=== PATIENT | male | born 1950 | race Caucasian/White ===

== ENCOUNTER 2016-06-09 19:25 | Emergency (ER) | payer OTHER ==
--- NOTE | 2016-06-09 20:50 | PROVIDER DOCUMENTATION ---
HPI-General Adult - General Chief Complaint: Fall Stated Complaint: FALL, RT SIDE PAIN Time Seen by Provider: 06/09/16 20:16 Source: patient Allergies/Adverse Reactions: Patient Allergies Allergy/AdvReac Type Severity Reaction Status Date / Time No Known Allergies Allergy Verified 03/27/16 02:56 Home Medications: Home Medication List Medication Instructions Recorded Confirmed Last Taken Type Amlodipine Besylate [Norvasc] 5 mg PO DAILY 06/09/16 06/09/16 06/09/16 History Aspirin 325 mg PO DAILY 06/09/16 06/09/16 06/09/16 History Hydrocodone/APAP 10 mg/325 mg 1 tab PO BID 06/09/16 06/09/16 06/09/16 History [Pelion-10] Ibuprofen [Motrin] 800 mg PO Q8H PRN PRN #20 tablet 06/09/16 Unknown Rx Losartan Potassium [Cozaar] 100 mg PO DAILY 06/09/16 06/09/16 06/09/16 History Metoprolol Succinate E.r. [Toprol 50 mg PO DAILY 06/09/16 06/09/16 06/09/16 History Xl] Niacin [Slo-Niacin] 1,000 mg PO HS 06/09/16 06/09/16 06/08/16 History Omeprazole 20 mg PO DAILY #20 tablet. 06/09/16 Unknown Rx - History of Present Illness -Gen Adult Nature of Presenting Problems: Pt. is 65 yom that presents with c/o right rib pain after he fell while getting up out of his chair today. Pt. states he lost his balance and fell with his right ribs landing on the arm of the chair. Pt. reports this happened around 1100 this morning. Pt. states the pain has gotten worse throughout the day. Pt. denies any other injury. Location of Pain/Injury: reports: chest (Right ribs). denies: head, face, mouth , neck, upper extremity, hand(s), abdomen, back, pelvis, genitalia, lower extremity, feet, upper body, lower body, generalized Pain Radiation: reports: no radiation Quality of Pain: reports: sharp, stabbing. denies: aching, burning, cramping, dull, fullness, indigestion, pressure, tearing, throbbing, tightness Severity: reports: moderate. denies: mild, severe Onset/Duration: reports: abrupt, this morning Timing: reports: still present. denies: improving, gone now, resolved prior to arrival, intermittent, constant, changing over time, getting worse Context/Activities at Onset: reports: none. denies: recent emotional stress, recent physical stress, recent trauma history, possible bad food, cold exposure , out of country travel Modifying Factors: improves with: nothing Associated Symptoms: reports: pain with inspiration, other (Right rib pain). denies: anxiety, arm pain, back/neck pain, chest pain, constipation, cough, diaphoresis, diarrhea, dizziness, EENT symptoms, fatigue, fever/chills, genitourinary problems, headaches, heartburn, joint pain, loss of appetite, malaise, muscle aches, sinus congestion/drainage, nausea, rash, seizure, shortness of breath, sensory/motor loss, swelling/mass in abdomen, syncope, vomiting, weakness, trouble walking Similar Symptoms Previously?: No Recently seen or treated by another doctor?: No Review of Systems - Adult - REVIEW OF SYSTEMS - ADULT Constitutional: reports: see HPI. denies: chills, fever, fatique Eyes: reports: see HPI. denies: discharge, blurred vision, double vision Ears, Nose, Mouth & Throat: reports: see HPI. denies: ear pain, hearing loss, nose pain, loose teeth, mouth/dental pain, throat pain, throat swelling Cardiovascular: reports: see HPI. denies: chest pain, irregular heart rate, palpitations, syncope Respiratory: reports: see HPI. denies: chronic cough, cough, dyspnea on exertion, pleurisy, shortness of breath, wheezing Gastrointestinal: reports: see HPI. denies: abdominal pain, hematemesis, frequent heartburn, nausea, vomiting Genitourinary: reports: see HPI. denies: dysuria, discharge, hematuria, hesitency, incontinence, urgency Musculoskeletal: reports: see HPI, bone pain (Right ribs). denies: back pain, joint pain, muscle aches, neck pain Integumentary: reports: see HPI. denies: hives, itching, rash, skin thickening Neurological: reports: see HPI. denies: ataxia, headache/migraines, numbness, seizure, tremors Psychiatric: reports: see HPI. denies: anxiety, depression, emotional problems , insomnia, panic attacks, suicidal thoughts Past History - Adult - PAST MEDICAL HISTORY-ADULT Review of Records: reports: Old Records Reviewed, Nursing Assessment Review, Medications Reviewed, Social history reviewed & non-contributory. - IMMUNIZATION STATUS Childhood Immunizations: See Nurse Assessment Flu Vaccine: See Nurse Assessment - FAMILY HISTORY Family History: reviewed, not pertinent - SOCIAL HISTORY Smoking: quit greater than 1 year Physical Exam-General - PHYSICAL EXAM-ADULT Initial Vital Signs Reviewed: Yes - CONSTITUTIONAL General Appearance: alert, mild distress, obese. negative: thin, anxious, lethargic, slow to respond, obtunded, combative - EYES Eyes: PERRL/EOMI, pink conjunctivae. negative: conjuctival exudate, scleral icterus, subconjunctival hemorrhage - HEAD, EARS, NOSE, MOUTH & THROAT HENMT: normocephalic/atraumatic, moist mucous membranes. negative: angioedema, frontal tenderness, maxillary tenderness - NECK Neck: non-tender, full range of motion, supple, normal inspection. negative: lymphadenopathy, trachial deviation, thyromegaly - RESPIRATORY Respiratory: lungs clear, normal breath sounds, pain on inspiration. negative: crackles, rales, rhonchi, stridor, wheezing - CARDIOVASCULAR Cardiovascular: regular rate, rhythm, no edema, no JVD, no murmur, tachycardia. negative: extra beats, friction rub, irregularly irregular - CHEST (BREASTS) Chest/Breast: deferred, tenderness (Right rib tenderness), other (Bruising noted to the lower rib line on the right side.) - GASTROINTESTINAL (ABDOMEN) Abdominal Exam: normal bowel sounds, non tender, soft. negative: distended, guarding, rigid, rebound, tenderness, hernia, mass - GENITOURINARY Male Genitalia: deferred Rectal Exam: deferred Hemoccult Exam: deferred - LYMPHATIC Lymphatic: no adenopathy. negative: axilla node tender, cervical node tenderness - MUSCULOSKELETAL Back Exam: normal inspection, no CVA tenderness, no vertebral tenderness, ecchymosis (Mild bruising noted to lower right ribs). negative: swelling, vertebral tenderness Extremity: normal range of motion, non-tender, normal gait, normal inspection. negative: deformity, erythema, inflammation, swelling, tenderness Peripheral Pulses: radial (R): 2+, radial (L): 2+ - SKIN Integumentary: normal color, normal turgor, warm/dry. negative: cyanosis, diaphoresis, ecchymosis, erythema, jaundice, mottled, pallor, petechiae, purpura , rash, swelling, tenderness - NEUROLOGIC Neurologic: grossly normal, no motor/sensory deficits. negative: aphasia, facial droop, focal weakness, motor weakness, sensory deficit - PSYCHIATRIC Psych/Mental Status: normal mood/affect, normal thought content, normal thought process, oriented x 3. negative: anxious, paranoid, tearful Progress - PLAN OF CARE/RESULTS Progress/Plan/Lab Results: Discussed results and plan of care with patient. Patient agrees with plan and verbalizes understanding. Vital Signs Temp Pulse Resp BP Pulse Ox 06/09/16 19:27 97.7 F 108 H 20 176/104 100 No Known Allergies Allergy (Verified 03/27/16 02:56) Amlodipine Besylate [Norvasc] 5 mg PO DAILY 06/09/16 Aspirin 325 mg PO DAILY 06/09/16 Hydrocodone/APAP 10 mg/325 mg [Pelion-10] 1 tab PO BID 06/09/16 Losartan Potassium [Cozaar] 100 mg PO DAILY 06/09/16 Metoprolol Succinate E.r. [Toprol Xl] 50 mg PO DAILY 06/09/16 Niacin [Slo-Niacin] 1,000 mg PO HS 06/09/16 Orders Category Date Time Status RIBS UNILAT W/PA CHEST RIGHT [RAD] Stat Exams 06/09/16 19:41 Taken - XRAY 1 XRAY Study: Chest XRAY Interpretation: No Fx Identified (Fernando) Departure - Departure Time of Disposition Order: 21:14 DIAGNOSIS: Rib contusion Qualifiers: Encounter type: initial encounter Laterality: right Qualified Code(s): S20.211A - Contusion of right front wall of thorax, initial encounter Disposition: HOME 01 Certified Medical Emergency: Emergent Condition: Stable Additional Instructions: Follow up with primary care physician Use a pillow to splint the right ribs Elevate your head at night while pain persists Take medications as directed Return to ED for any concerns or worsening of symptoms ED Follow Up Instructions: You have been treated by a care provider in the Emergency Department. These instructions are being provided to you so you can have an understanding of how to care for yourself upon discharge. Upon discharge from the Emergency Department, you are responsible for making arrangements for follow-up care by a physician of your choice. Take all prescribed medications as directed. Return to the Emergency Department immediately for any new or worsening symptoms. You may call the Physician Referral phone number at [phone] to obtain a list of Physicians who are taking new patients. Prescriptions: Ibuprofen [Motrin] 800 mg PO Q8H PRN PRN #20 tablet PRN Reason: inflammation Omeprazole 20 mg PO DAILY #20 tablet.dr Referrals: El Holland MD [Primary Care Provider] - Attestation - Physician/ KATHY Attestation Patient care was provided by Advanced Practice Provider:: Yes Advanced Practice Provider:: Unique Hodges Advanced Practice Provider documentation review:: The Mid-level provider documentation, treatment plan and medical decision making was reviewed by the physician who agrees with all treatment and medical decision making by the MLP.
[2016-06-09] MEDS ORDERED: TORADOL IM ONE (21:13)
--- NOTE | 2016-06-09 21:16 | Diag Imaging Result Document ---
PROCEDURE NAME: RIBS UNILAT W/PA CHEST RIGHT - 06/09/2016 PLAIN RADIOGRAPH OF THE CHEST AND RIGHT RIBS, 5 VIEWS: COMPARISON: 08/11/2015. FINDINGS: There is no discrete rib fracture or intrinsic osseous lesion identified. The lungs are grossly clear. There is no pleural fluid collection or pneumothorax identified. Cardiac silhouette and central vasculature are grossly unremarkable. IMPRESSION: No evidence of rib fracture.
[2016-06-09 21:38] VITALS: BP 140/80
== END 2016-06-09 21:37 | disposition home or self-care (01) ==
LOC: ED 19:25
DX: S20.211A Contusion of right front wall of thorax, initial encounter (principal); R07.81 Pleurodynia; R07.1 Chest pain on breathing; R00.0 Tachycardia, unspecified; E66.9 Obesity, unspecified; Z87.891 Personal history of nicotine dependence; Z79.82 Long term (current) use of aspirin; Z79.899 Other long term (current) drug therapy; W18.39XA Other fall on same level, initial encounter; W22.8XXA Striking against or struck by other objects, initial encounter
CPT/HCPCS: 71101; J1885